=== PATIENT | female | born 1985 | race Caucasian/White ===

== ENCOUNTER → 2016-09-12 | Outpatient (CLI) | payer OTHER ==
[~2016-09-12] MED LIST: PRENTAB26 PO
[2016-09-12 11:39] LABS: PROLACTIN 8.96 ng/mL
[2016-09-12 11:40] LABS: CALCULATED INSULIN SENSITIVITY 0.381; GLUCOSE LOG 1.9191; INSULIN FASTING 5.1 mU/L (3-25); INSULIN LOG 0.7076
[2016-09-12 11:42] LABS: THYROID STIMULATING HORMONE 0.862 uIu/ml (0.300-4.500)
== END | disposition home or self-care (01) ==
LOC: C.LAB 10:11
PROVIDERS: ATTEND Psychiatry & Neurology Neurology
DX: G40.309 Generalized idiopathic epilepsy and epileptic syndromes, not intractable, without status epilepticus (principal); Z51.81 Encounter for therapeutic drug level monitoring; Z79.899 Other long term (current) drug therapy; Z31.41 Encounter for fertility testing

== ENCOUNTER → 2016-12-16 | Outpatient (CLI) | payer OTHER | END | disposition home or self-care (01) | LOC: C.PAPS 08:50 | PROVIDERS: ATTEND Obstetrics & Gynecology | DX: Z01.419 Encounter for gynecological examination (general) (routine) without abnormal findings (principal) ==

== ENCOUNTER → 2017-01-11 | Outpatient (CLI) | payer OTHER ==
--- NOTE | 2017-01-11 12:09 | DIAGNOSTIC IMAGING REPORT ---
HYSTEROSALPINGOGRAM CLINICAL HISTORY: INFERTILITY COMPARISON STUDY: No previous studies for comparison. Fluoroscopy time: 0.2 minutes. Procedure: A hysterosalpingogram was performed by Dr. Calderón. The cervix was cannulated and 50 cc of Optiray 300 was instilled into the uterine cavity. Fluoroscopic images were obtained. These images demonstrate a normal uterine morphology. Both fallopian tubes were patent with free spillage bilaterally. A mobile filling defect within the uterine cavity represents a gas bubble. IMPRESSION: Normal hysterosalpingogram. Patent bilateral fallopian tubes. Electronically signed by: Ze Lamar M.D. 01/11/2017 12:08 PM Dictated Date/Time: 01/11/2017 12:07 PM
--- NOTE | 2017-01-11 16:09 | OPERATIVE REPORT ---
DATE OF OPERATION: 01/11/2017 PROCEDURE NOTE PREOPERATIVE DIAGNOSES: Primary infertility. POSTOPERATIVE DIAGNOSIS: Same. PROCEDURE PERFORMED: Hysterosalpingogram. SURGEON: Dr. Calderón. FINDINGS: Injection of radiopaque dye showed normal fill and spill of fallopian tubes and uterine cavity. PROCEDURE IN DETAIL: The patient was taken to the fluoroscopy suite and in a dorsal lithotomy position an HSG cannula was inserted into the cervical os. Under direct fluoroscopic guidance, radiopaque dye was injected into the uterine cavity with the description as above. Instrumentation removed from the cervix. The patient tolerated the procedure well. I attest to the content of the Intraoperative Record and any orders documented therein. Any exceptio ns are noted below.
== END | disposition home or self-care (01) ==
LOC: C.RAD 11:26
PROVIDERS: ATTEND Obstetrics & Gynecology
DX: Z31.41 Encounter for fertility testing (principal)

== ENCOUNTER → 2017-04-12 | Outpatient (CLI) | payer OTHER | END | disposition home or self-care (01) | LOC: C.PATHSPEC 17:34 | PROVIDERS: ATTEND Physician Assistant | DX: K11.6 Mucocele of salivary gland (principal) ==

== ENCOUNTER → 2017-05-07 | Outpatient (CLI) | payer OTHER ==
[2017-05-07 09:01] LABS: POST WASH EXAM EXCELLENT
== END | disposition home or self-care (01) ==
LOC: C.LAB 08:10
PROVIDERS: ATTEND Obstetrics & Gynecology
DX: N97.9 Female infertility, unspecified (principal)

== ENCOUNTER → 2017-10-03 | Outpatient (CLI) | payer OTHER | END | disposition home or self-care (01) | LOC: C.LAB 09:54 | PROVIDERS: ATTEND Specialist | DX: Z31.41 Encounter for fertility testing (principal) ==

== ENCOUNTER → 2017-10-09 | Outpatient (CLI) | payer OTHER ==
[2017-10-09 10:24] LABS: LUTEINIZING HORMONE 4.32 IU/L
== END | disposition home or self-care (01) ==
LOC: C.LAB 09:33
PROVIDERS: ATTEND Specialist
DX: Z31.41 Encounter for fertility testing (principal)

== ENCOUNTER → 2017-10-25 | Outpatient (CLI) | payer OTHER | END | disposition home or self-care (01) | LOC: C.LAB 07:34 | PROVIDERS: ATTEND Specialist | DX: O09.00 Supervision of pregnancy with history of infertility, unspecified trimester (principal); Z3A.00 Weeks of gestation of pregnancy not specified ==

== ENCOUNTER → 2017-10-31 | Outpatient (CLI) | payer OTHER | END | disposition home or self-care (01) | LOC: C.LAB1850 09:26 | PROVIDERS: ATTEND Specialist | DX: Z31.41 Encounter for fertility testing (principal) ==

== ENCOUNTER → 2017-11-06 | Outpatient (CLI) | payer OTHER ==
[2017-11-06 12:35] LABS: LUTEINIZING HORMONE 6.74 IU/L
== END | disposition home or self-care (01) ==
LOC: C.LAB1850 09:48
PROVIDERS: ATTEND Specialist
DX: Z31.41 Encounter for fertility testing (principal)

== ENCOUNTER → 2018-01-22 | Outpatient (CLI) | payer OTHER | END | disposition home or self-care (01) | LOC: C.LAB 18:37 | PROVIDERS: ATTEND Specialist | DX: Z31.41 Encounter for fertility testing (principal); Z13.21 Encounter for screening for nutritional disorder; N97.9 Female infertility, unspecified ==

== ENCOUNTER → 2018-01-26 | Outpatient (CLI) | payer OTHER ==
[2018-01-26 09:22] LABS: LUTEINIZING HORMONE 5.81 IU/L
== END | disposition home or self-care (01) ==
LOC: C.LAB 08:14
PROVIDERS: ATTEND Specialist
DX: N97.9 Female infertility, unspecified (principal)

== ENCOUNTER → 2018-01-29 | Outpatient (CLI) | payer OTHER ==
[2018-01-29 13:46] LABS: LUTEINIZING HORMONE 3.11 IU/L
== END | disposition home or self-care (01) ==
LOC: C.LAB1850 12:49
PROVIDERS: ATTEND Specialist
DX: N97.9 Female infertility, unspecified (principal)

== ENCOUNTER → 2018-04-03 | Outpatient (CLI) | payer OTHER | END | disposition home or self-care (01) | LOC: C.LAB 13:15 | PROVIDERS: ATTEND Student in an Organized Health Care Education/Training Program | DX: Z00.00 Encounter for general adult medical examination without abnormal findings (principal); Z13.1 Encounter for screening for diabetes mellitus ==

== ENCOUNTER → 2018-05-01 | Outpatient (CLI) | payer OTHER | END | disposition home or self-care (01) | LOC: C.PAPS 19:15 | PROVIDERS: ATTEND Obstetrics & Gynecology | DX: Z12.4 Encounter for screening for malignant neoplasm of cervix (principal) ==

== ENCOUNTER 2019-08-24 02:52 | Inpatient (IN) ==
[2019-08-24] MEDS ORDERED: OXYTOCIN 30 UNITS/500 ML BAG IV PRN ×2 (03:00→05:43)
[2019-08-24] MEDS ORDERED: LACTATED RINGER'S 1,000 ML IV PRN (03:00)
[2019-08-24 03:25] LABS: Hematocrit (blood only) 38.7 % (37-47); Hemoglobin 13.3 g/dL (12.0-16.0); Mean Corpuscular Hemoglobin 30.2 pg (25-34); Mean Corpuscular Volume 87.8 fL (80-100); Mean Platelet Volume 12.1 fL (7.4-10.4); Platelet Count 154 K/uL (130-400); RDW Coefficient of Variation 13.4 % (11.5-14.5); RDW Standard Deviation 43.1 fL (36.4-46.3); Red Blood Count 4.41 M/uL (4.2-5.4); White Blood Count 10.85 K/uL (4.8-10.8)
[2019-08-24 04:20] LABS: Mean Corpuscular Hgb Conc 34.4 g/dL (32-36)
--- NOTE | 2019-08-24 05:18 | Delivery Summary ---
DATE OF OPERATION: 08/24/2019 The patient is a 34-year-old nulligravida white female, EDC of 08/28/2019, who presented in active labor with spontaneous rupture of membranes of clear fluid at approximately 2100 hours. She was 7 cm upon arrival in labor and delivery and rapidly went to full dilation. She pushed effectively over an intact perineum for delivery of a viable female . After the head was delivered, nuchal cord was reduced. The rest of the infant was then delivered with a hand presentation following the head. Rest of the infant was delivered easily and was placed on the mother's abdomen for further attention and drying. There was a vigorous crying and the was moving all 4 limbs. The cord was clamped and cut after 30 seconds, the placenta was expressed intact with a 3-vessel cord. First-degree perineal laceration was repaired with 3-0 chromic in the usual fashion. 1% lidocaine was used to anesthetize the area for repair. Estimated blood loss was 300 mL. This was an unmedicated . Mother and infant are doing well after delivery. I attest to the content of the Intraoperative Record and any orders documented therein. Any exception s are noted below.
[2019-08-24] MEDS ORDERED: OXYCODONE/ACETAMINOPHEN 5mg/325mg TAB PO PRN (05:43)
[2019-08-24] MEDS ORDERED: ACETAMINOPHEN 325 MG TAB PO PRN (05:43)
[2019-08-24] MEDS ORDERED: BENZOCAINE 20% AER SPR 82.5 GM CAN EXT PRN (05:43)
[2019-08-24] MEDS ORDERED: SUPERCREAM 0.870% 15 GM JAR EXT PRN (05:43)
[2019-08-24] MEDS ORDERED: bisacodyL 10 MG SUPP PR PRN (05:43)
[2019-08-24] MEDS ORDERED: DIPHTHERIA/TETANUS/PERTUSSIS 0.5 ML SYR/VIAL IM ONE (05:43)
[2019-08-24] MEDS ORDERED: HYDROCORTISONE ACETATE 25 MG SUPP PR PRN (05:43)
[2019-08-24] MEDS ORDERED: DOCUSATE SODIUM 100 MG CAP PO PRN (07:30)
[2019-08-24] MEDS ORDERED: PRENATAL VITAMIN 1 TAB PO SCH (08:00)
[2019-08-24] MEDS: DOCUSATE SODIUM 100 MG CAP PO SCH ×2 (08:46→21:37)
[2019-08-24] MEDS ORDERED: levETIRAcetam 250 MG TAB PO SCH ×2 (09:00→21:45)
[2019-08-24] MEDS: IBUPROFEN 600 MG TAB PO PRN ×2 (15:10→21:37)
[2019-08-25 01:04] VITALS: BP 112/68; PULSE 81; TEMP 98.4
[2019-08-25] MEDS ORDERED: bisacodyL 5 MG TABEC PO SCH (20:00)
== END 2019-08-25 04:20 | disposition home or self-care (01) | DRG 807 ==
LOC: OPB 02:52 → 4S1 02:55 → 4S2 08:12
DX: O99.350 Diseases of the nervous system complicating pregnancy, unspecified trimester; Z37.0 Single live birth; Z3A.39 39 weeks gestation of pregnancy; O70.0 First degree perineal laceration during delivery; O69.81X0 Labor and delivery complicated by cord around neck, without compression, not applicable or unspecified; O32.8XX0 Maternal care for other malpresentation of fetus, not applicable or unspecified; G40.409 Other generalized epilepsy and epileptic syndromes, not intractable, without status epilepticus

== ENCOUNTER 2022-01-29 15:51 | Inpatient (IN) ==
[2022-01-29] MEDS ORDERED: LACTATED RINGER'S 1,000 ML IV PRN (15:57)
[2022-01-29] MEDS ORDERED: OXYTOCIN 30 UNITS/500 ML BAG IV PRN ×2 (15:57→17:39)
[2022-01-29 17:04] LABS: Hematocrit (blood only) 36.9 % (37-47); Hemoglobin 12.8 g/dL (12.0-16.0); Mean Corpuscular Hemoglobin 31.1 pg (25-34); Mean Corpuscular Hgb Conc 34.7 g/dL (32-36); Mean Corpuscular Volume 89.8 fL (80-100); Mean Platelet Volume 11.9 fL (7.4-10.4); Platelet Count 155 K/uL (130-400); RDW Coefficient of Variation 13.9 % (11.5-14.5); RDW Standard Deviation 45.7 fL (36.4-46.3); Red Blood Count 4.11 M/uL (4.2-5.4); White Blood Count 14.47 K/uL (4.8-10.8)
[2022-01-29] MEDS ORDERED: LIDOCAINE 1% LOCAL 20 ML VIAL ONE (17:20)
--- NOTE | 2022-01-29 17:28 | Delivery Summary ---
Vaginal Delivery Summary Date of Service January 29, 2022 Vaginal Delivery Summary Spontaneous vaginal delivery the patient arrived in active labor and went from 6 to 8 cm. She did not wish an epidural group B strep negative COVID-negative she excepted artificial rupture of membranes for clear fluid and then delivered shortly after delivery baby in occiput anterior position fluid was clear no nuchal cord mouth and then nares suctioned with bulb gentle traction use no excessive force live vigorous female cord clamped and cut cord blood obtained placenta removed with gentle traction IV Pitocin started there was no tearing estimated blood loss 200 mL sponge and instrument counts correct
[2022-01-29] MEDS ORDERED: bisacodyL 10 MG SUPP PR PRN (17:39)
[2022-01-29] MEDS ORDERED: BENZOCAINE 20% AER SPR 82.5 GM CAN EXT PRN (17:39)
[2022-01-29] MEDS ORDERED: oxyCODONE/ACETAMINOPHEN 5mg/325mg TAB PO PRN (17:39)
[2022-01-29] MEDS ORDERED: HYDROCORTISONE ACETATE 25 MG SUPP PR PRN (17:39)
[2022-01-29] MEDS ORDERED: DIPHTHERIA/TETANUS/PERTUSSIS 0.5 ML SYR/VIAL IM ONE (17:39)
[2022-01-29] MEDS ORDERED: ACETAMINOPHEN 325 MG TAB PO PRN (17:39)
[2022-01-29] MEDS: IBUPROFEN 600 MG TAB PO PRN (20:51)
[2022-01-29] MEDS: DOCUSATE SODIUM 100 MG CAP PO SCH (20:51)
[2022-01-29] MEDS: levETIRAcetam 500 MG TAB PO SCH (20:51)
[2022-01-30] MEDS: IBUPROFEN 600 MG TAB PO PRN ×2 (01:01→05:10)
--- NOTE | 2022-01-30 07:34 | Obstetrical Progress Note ---
Date of Service January 30, 2022 Assessment & Plan (1) Supervision of normal intrauterine in multigravida: day #1 the patient meets discharge criteria and wishes a 23- hour discharge she is doing well with minimal bleeding no extremity pain and breast-feeding well Subjective Ambulation: ambulating normally Voiding: no voiding problems Passing Gas:: Yes Diet Tolerance:: regular diet Lochia:: Small Results & Data ([facility]) Vital Signs (Past 12 Hours) Vital Signs Temp Pulse Pulse Resp BP BP Pulse Ox 01/30/22 05:10 98.4 F 75 17 104/66 95 01/30/22 00:40 97.7 F 70 16 115/71 97 01/29/22 20:30 98.2 F 85 17 99/65 L 97 01/29/22 19:56 80 106/59 L 01/29/22 19:41 85 106/58 L
[2022-01-30] MEDS ORDERED: PRENATAL VITAMIN 1 TAB PO SCH (08:00)
[2022-01-30] MEDS: DOCUSATE SODIUM 100 MG CAP PO SCH (08:36)
[2022-01-30] MEDS: levETIRAcetam 500 MG TAB PO SCH (08:36)
[2022-01-30] MEDS ORDERED: bisacodyL 5 MG TABEC PO SCH (20:00)
== END 2022-01-30 18:46 | disposition home or self-care (01) | DRG 807 ==
LOC: OPB 15:51 → 4S1 15:52 → 4E2 20:41
DX: O80 Encounter for full-term uncomplicated delivery; Z37.0 Single live birth; Z3A.39 39 weeks gestation of pregnancy